=== PATIENT | male | born 1990 | race Two or more races ===

== ENCOUNTER → 2019-05-18 | Emergency (ER) | payer SELFPAY ==
[~2019-05-18] VITALS: Ht 175.3 cm; Wt 72.6 kg
[2019-05-18 16:51] VITALS: BP 120/69
== END | disposition home or self-care (01) ==
LOC: ER 15:48
DX: B34.9 Viral infection, unspecified (principal)
CPT/HCPCS: 87070; 87430; 87804; 99283